=== PATIENT | female | born 1940 | race Caucasian/White ===

== ENCOUNTER 2017-05-04 16:25 | Emergency (ER) | payer OTHER ==
--- NOTE | 2017-05-04 17:28 | DIAGNOSTIC IMAGING REPORT ---
PROCEDURE: XR CHEST 1 VIEW INDICATION: DIZZY TECHNIQUE: Portable AP view 04:57 p.m. COMPARISON: None. FINDINGS: Lungs are clear. Mild cardiomegaly. Normal pulmonary vasculature. Hiatal hernia. IMPRESSION: 1. Mild cardiomegaly. Lungs clear.
--- NOTE | 2017-05-04 18:02 | ED NURSING NOTES ---
Clinical Report - Nurses [facility] [address] [place] [address] 05/04/2017 16:25 Patient: TAMI WINCHESTER TRIAGE Triage time 16:27 May 04 2017. Acuity: LEVEL 2. Chief Complaint: DIZZINESS and ([facility], accomp with dizziness, per ems SR, glucose 126). Alert. No acute distress. SEPSIS SCREEN: Sepsis Screen. Negative (no infection suspected/documented). ERWIN COMA SCORE: [place] Coma Scale: 15- eyes open spontaneously (4); best verbal response- oriented x 4 (5); best motor response- obeys commands (6). --16:35 Linnette Penny R.N. 16:26 05/04/17. BP: 162/72. HR: 60. RR: 17. O2 saturation: 97%. Temp: 97.9 F. Pain level now: 0/10. --16:35 Linnette Penny R.N. Weight: 80.7 kg stated. Height/Length: 67 inches Per Patient. BMI: 27.9. --16:29 Linnette Penny R.N. Medications Levoxyl Oral (Tablet 100 mcg), daily. --16:39 Linnette Penny R.N. Lisinopril Oral (Tablet 20 mg), 2x a day. --16:40 Linnette Penny R.N. B12 injection. --16:41 Linnette Penny R.N. HumaLOG Subcutaneous. --16:41 Linnette Penny R.N. HumuLIN N Subcutaneous. --16:41 Linnette Penny R.N. Aspirin Oral (Tablet 81 mg) 1 tablet, daily. --16:42 Linnette Penny R.N. Fish Oil Oral. --16:42 Linnette Penny R.N. Vit D3. --16:42 Linnette Penny R.N. Turmeric Oral. --16:42 Linnette Penny R.N. The following entry was struck by Linnette Penny R.N., 16:39 (05/04/17) Reason - other(pt didn't have list upon arrival). <<STRICKEN ENTRY-- Unknown. --16:30 Linnette Penny R.N. --END STRIKE>>. Allergies Lipitor. --16:30 Linnette Penny R.N. Latex. --16:30 Linnette Penny R.N. Carvitol . --16:43 Linnette Penny R.N. Metronidazole. --16:43 Linnette Penny R.N. (pt unsure of meds,). --16:35 Linnette Penny R.N. History Arrived by EMS. Historian: patient. This started just prior to arrival. She has had nausea. 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 Pre-hospital 12-lead EKG performed en route (). PAST MEDICAL HX: Immunizations: up-to-date. The patient has had a hysterectomy. SOCIAL HX: Never smoker. Occasional alcohol use; consumes liquor. No infectious disease exposure. ABUSE ASSESSMENT: No report of abuse. SELF HARM ASSESSMENT: A self harm assessment was performed. The patient answered "no" to the question "Do you have thoughts of harming or killing yourself?". NUTRITIONAL RISK ASSESSMENT: The nutritional risk assessment revealed no deficiencies. FUNCTIONAL ASSESSMENT: Functional assessment: no impairments noted. LEARNING NEEDS ASSESSMENT: The learning needs assessment revealed no barriers. FALL RISK ASSESSMENT: Fall risk assessment completed. Risk factors identified include dizziness and patient age greater than 65 years. Fall interventions initiated. Patient placed on stretcher. Side rails up x2. Brakes on Bed in low position. Patient identified as a fall risk by ID band. Call light in reach of patient. Instructed not to get up without assistance. SKIN INTEGRITY ASSESSMENT: Skin integrity risk assessment completed. No skin integrity risk identified. --16:35 Linnette Penny R.N. PROBLEMS: Stented coronary artery. Hypertension. Diabetes Mellitus. --16:32 Linnette Penny R.N. ADDITIONAL SURGERIES: Back Surgery. --16:32 Linnette Penny R.N. Appendectomy. Hysterectomy. --16:35 Linnette Penny R.N. Interventions To treatment room. --16:35 Linnette Penny R.N. PHYSICAL ASSESSMENT To room via stretcher. Patient gowned. GENERAL / NEURO / PSYCH: Oriented X 4. Appears in no acute distress. Alert. Speech within normal limits. RESPIRATORY: Respirations not labored. CVS: Cardiac rhythm: (SR). GI / : Abdomen soft and nontender. SKIN: Skin is warm and dry. --16:36 Linnette Penny R.N. NURSING PROGRESS NOTES EKG time: (8080). EKG was performed by a harshad and shown to the ED physician. --16:27 Linnette Penny R.N. 16:36 05/04/2017 Site #1 started prior to arrival by EMS via IV in the right antecubital space with an 18g angiocath. --16:36 Linnette Penny R.N. playground monitor, pulse oximeter and NIBP monitor placed on patient; nurse monitoring- Lead II, aVF and V5; monitor alarms on. Patient gowned. Patient identifiers checked. Call light placed in reach. Side rails up x 2. Bed placed in lowest position. Brakes of bed on. Patient ready for evaluation- chart flagged. Patient waiting for evaluation. --16:37 Linnette Penny R.N. <<STRICKEN ENTRY-- 17:24 05/04/17. BP: 146/68. HR: 60. O2 saturation: 94%. --17:29 Chetna Yuen, ER Tech1 --END STRIKE>> Correction. --17:30 Chetna Yuen, ER Tech1 <<STRICKEN ENTRY-- 17:25 05/04/17. BP: 146/68 taken while lying. HR: 60. O2 saturation: 94%. --17:29 Chetna Yuen ER Tech1 --END STRIKE>> Correction. --17:30 Chetna Yuen ER Tech1 ( orthostatics - lying bl. pressure-146/68, pulse-60 sitting bl. pressure- 156/61, pulse- 63 standing bl. pressure- 156/64, pulse- 70). --17:32 Chetna Yuen ER Tech1 17:54 05/04/2017 Zofran (Ondansetron HCl) IVP 4 mg given. via site #1. Allergies verified and confirmed 5 rights. IV patency established. IV site checked: no pain, redness, or swelling. IV flushed thoroughly pre- and post-medication administration. IVP given by RN. --17:59 Linnette Penny R.N. 17:54 05/04/2017 Started bag #1 500 mL IV Fluids IV NS (Saline); at 500 mL/hr via site #1. Allergies verified and confirmed 5 rights. IV patency established. IV site checked: no pain, redness, or swelling. IV flushed thoroughly pre- and post-medication administration. --17:59 Linnette Penny R.N. 18:00 05/04/2017 Aspirin PO 325 mg given. Allergies verified and confirmed 5 rights. --18:00 Linnette Penny R.N. 19:28 05/04/2017 Site #1 removed. Bandaid applied (pt signing out AMA). --19:38 Linnette Penny R.N. ( pt reports improvement in symptoms since arrival, "I still spin a little but it's better" pt able to get up and dress self, pt a/o x 4, pt denies cp, "it wasn't even pain earlier it was pressure" pt ready to leave.). --19:42 Linnette Penny R.N. 19:30 05/04/2017 IV Fluids IV NS Discontinued: completed. Total amount infused: 500 mL. IV patency established. IV site checked: no pain, redness, or swelling. IV flushed thoroughly. --19:55 Linnette Penny R.N. 19:30 05/04/2017 Zofran IVP Response: no adverse reaction symptoms are the same. --19:55 Linnette Penny R.N. DISPOSITION / DISCHARGE The patient left the Emergency Department against medical advice and without completion of treatment; patient was accompanied by a family member. The patient appears to be alert, oriented x4 and coherent. The patient stated is leaving the ED due to personal reasons. Notified the ED physician of patient departure. Prior to leaving the ED, she was advised to stay for completion of treatment and return if needed. She was informed of the risks of leaving and verbalized understanding of these risks. Patient signed form prior to leaving. She left the Emergency Department ambulatory and via private vehicle. ( MD spent a good amount of time with pt explaining importance of staying for further tx, plan was for pt to be an admit to hospital, when MD explained to pt if this is her heart risks posed , pain, disability, pt reported "I only have to live til next " when asked why pt reports "I meet with my securities attorney to do my final will" daughter in law at bedside states "It's up to her" pt despite risks chooses to go home.). --19:14 Linnette Penny R.N. Cardiac rhythm: (SR). --19:15 Linnette Penny R.N. No learning barriers present. Discharge instructions provided and reviewed with the patient. Reviewed medication(s) side effects information. Prescription(s) given to the patient. Activity restrictions reviewed (per MD note). Patient and family verbalized understanding. Written instructions provided in Estonian. The patient was discharged by the physician. She was discharged home and accompanied by family. She left the Emergency Department ambulatory and via private vehicle. Family member driving. ( PT signed out AMA). --19:54 Linnette Penny R.N. 19:41 05/04/17. BP: 162/67. HR: 69. RR: 17. O2 saturation: 97%. Pain level now: 0/10. 18:53 05/04/17. BP: 157/64. HR: 66. 18:08 05/04/17. BP: 158/58. HR: 61. RR: 17. Pain level now: 010. 17:29 05/04/17. BP: 156/64 taken while standing. HR: 70. 17:28 05/04/17. BP: 156/61 taken while sitting. HR: 63. 16:26 05/04/17. BP: 162/72. HR: 60. RR: 17. O2 saturation: 97%. Temp: 97.9 F. Pain level now: 0/10. --19:54 Linnette Penny R.N. Locked/Released at 05/04/2017 20:54 by Linnette Penny R.N.
--- NOTE | 2017-05-04 18:02 | ED CLINICAL REPORT ---
Clinical Report - Physicians/Mid Levels [facility] [address] [place] [address] 05/04/2017 16:25 Patient: TAMI WINCHESTER Time Seen: 16:44. Arrived- By private vehicle. Historian- patient. HISTORY OF PRESENT ILLNESS Chief Complaint: DIZZINESS. Severity described as severe at its maximum. When seen in the E.D., severity described as mild. Modifying factors- worsened by turning head. Described as a moderate, vague sense of movement, sense of falling and feeling off balance. This started today and is still present. It was abrupt in onset and has been constant. The patient has had nausea and vomiting. No hearing loss or ear pain. Similar symptoms previously: Twice. Diagnosis: (vertigo). REVIEW OF SYSTEMS No chills, fever, sweats, calf pain or cough. No difficulty breathing, pedal edema or palpitations. She has had mild, pressure-like central chest pain ("tightness" when she was walking), currently gone, associated with nausea and diaphoresis. No radiation. No associated shortness of breath. All systems otherwise negative, except as recorded above. PAST HISTORY ( PCP - [facility] [place]). Problems: Stented coronary artery. Hypertension. Diabetes Mellitus. Additional Surgeries: Appendectomy. Back Surgery. Hysterectomy. Medications: Turmeric Oral. Vit D3. Fish Oil Oral. Aspirin Oral (Tablet 81 mg) 1 tablet, daily. HumuLIN N Subcutaneous. HumaLOG Subcutaneous. B12 injection. Lisinopril Oral (Tablet 20 mg), 2x a day. Levoxyl Oral (Tablet 100 mcg), daily. Allergies: Carvitol . Latex. Lipitor. Metronidazole. SOCIAL HISTORY Never smoker. No alcohol use. FAMILY HISTORY Diabetes in first-degree relative (mother and father). ADDITIONAL NOTES The nursing notes have been reviewed. PHYSICAL EXAM Vital Signs: 05/04/2017 16:26 BP: 162/72. HR: 60. RR: 17. O2 saturation: 97%. Temp: 97.9 F. Pain level now: 0/10. Have been reviewed. Appearance: Alert. Eyes: Horizontal nystagmus. ENT: Moist mucous membranes. Pharynx normal. Neck: Normal inspection. Neck supple. No carotid bruit. CVS: Normal heart rate and rhythm. Heart sounds normal. Respiratory: No respiratory distress. Breath sounds normal. Abdomen: Soft and nontender. No organomegaly. Back: Normal inspection. Skin: Skin warm and dry. Normal skin color. Normal skin turgor. Extremities: Extremities exhibit normal ROM. No lower extremity edema. Neuro: Alert. Speech normal. No cerebellar findings. No motor deficit. No sensory deficit. LABS, X-RAYS, AND EKG EKG: Rate: 61. Incomplete RBBB. Left axis deviation. Non-specific ST segment / T wave abnormalities. The study has been independently viewed by me. Laboratory Tests: CBC w Diff: (ANTHONY: 05/04/2017 16:35) ( CagRcvd 05/04/2017 16:57) Final results Test Result Flag Units (Reference) WHITE BLOOD COUNT 5.5 K/uL (4.5-11.5) RED BLOOD COUNT 3.68 L M/uL (4.00-5.20) HEMOGLOBIN 10.3 L gm/dL (12.0-16.0) HEMATOCRIT 31.2 L % (36.0-46.0) MEAN CELL VOLUME 85 fL (80-100) MEAN CORPUSCULAR HGB 28 pg (26-34) MEAN CORPUSCULAR HGB CONC 33 g/dL (31-37) RED CELL DISTRIBUTION WIDTH 14.8 % (11.6-14.8) PLATELET COUNT 261 K/uL (150-400) NEUTROPHIL % 45.0 L % (50-75) LYMPH % 40.0 % (25-40) MONO % 11.1 % (3-14) EOSINOPHIL % 3.5 % (0-4) BASOPHIL % 0.4 % (0-2) CPK: (ANTHONY: 05/04/2017 16:35) ( MsgRcvd 05/04/2017 17:31) Final results Test Result Flag Units (Reference) CPK 76 U/L (24-260) TROPONIN I <0.05 L ng/mL (0.00-1.5) TROPONIN REFERENCE RANGE:<0.1 NEGATIVE0.1-1.5 INDETERMINANT>1.5 POSITIVE CMP: (ANTHONY: 05/04/2017 16:35) ( MsgRcvd 05/04/2017 17:20) Final results Test Result Flag Units (Reference) GLUCOSE 76 mg/dL (70-110) BUN 28 H mg/dL (7-18) CREATININE 1.1 mg/dL (0.6-1.3) Estimated GFR 51.06 mL/min Estimated GFR- >60 mL/min Note: Persistent reduction over 3 months in eGFR<60 mL/min/1.73 m2 defines CKD. Patients with eGFR values>=60 mL/min/1.73 m2 may also have CKD if evidence ofpersistent proteinuria. Additional information may be foundat www.kidney.org. SODIUM 137 mmol/L (136-145) POTASSIUM 4.0 mmol/L (3.5-5.1) CHLORIDE 101 mmol/L (98-107) CARBON DIOXIDE 26 mmol/L (21-32) CALCIUM 9.0 mg/dL (8.5-10.1) TOTAL PROTEIN 7.4 g/dL (6.4-8.2) ALBUMIN 3.7 g/dL (3.3-5.0) BILIRUBIN, TOTAL 0.2 mg/dL (0.0-1.0) ALKALINE PHOSPHATASE 30 L U/L (46-116) AST (SGOT) 16 U/L (15-37) ALT (SGPT) 16 U/L (12-78) LIPASE 100 U/L (73-393) AMYLASE 32 U/L (25-115) . PROGRESS AND PROCEDURES Course of Care: I had an extended discussion with the patient regarding my concerns about the chest discomfort she had experienced earlier. I consulted Dr. Harvey and when he came to evaluate her the patient said that she did not want to be brought in for observation. I subsequently went back and explained at length my concerns regarding the risk of injury to her heart and the importance behind cardiac monitoring and obtaining serial enzymes. In spite of this she insisted that her dizziness feels better and she does not want to be admitted for observation. She acknowledges the risks associated with leaving and yet continues to insist that she leave. Patient is stable. Discussed case with hospitalist, (Wes Christopher he saw the patient in the emergency room. However, she refused admission as noted.). Reviewed test results and need for additional work-up. Agreed upon treatment plan, need for patient follow-up and decision to place in observation. Patient/family counseled. Old medical records ordered. Old records unavailable. CLINICAL IMPRESSION Acute vertigo. Chest pain characterized as "tightness". INSTRUCTIONS No driving or operating machinery while taking medication. Sedative medication was given during your visit. No strenuous activity. Drink plenty of fluids. Warnings: Further evaluation is necessary. GENERAL WARNINGS: Return or contact your physician immediately if your condition worsens or changes unexpectedly, if not improving as expected, or if other problems arise. Your Current Medications: CONTINUE TAKING THE FOLLOWING MEDICATIONS: Aspirin Oral : Tablet 81 mg, 1 tablet daily. B12 injection*. Fish Oil Oral. HumaLOG Subcutaneous. HumuLIN N Subcutaneous. Levoxyl Oral : Tablet 100 mcg, daily. Lisinopril Oral : Tablet 20 mg, 2x a day. Turmeric Oral. Vit D3*. Prescription Medications: Antivert 25mg: Take 1 tablet orally every 8 hours as needed for dizziness. Dispense thirty (30). No refills. Substitution is permissible. Follow-up: Follow up with your doctor tomorrow. Call for the next available appointment. Understanding of the discharge instructions verbalized by patient. (Electronically signed by Chidi Hawley MD 05/05/2017 9:47)
--- NOTE | 2017-05-04 18:02 | ED NURSING NOTES ---
Clinical Report - Nurses [facility] [address] [place] [address] 05/04/2017 16:25 Patient: TAMI WINCHESTER TRIAGE Triage time 16:27 May 04 2017. Acuity: LEVEL 2. Chief Complaint: DIZZINESS and ([facility] with [facility]iness, per ems SR, glucose 126). Alert. No acute distress. SEPSIS SCREEN: Sepsis Screen. Negative (no infection suspected/documented). ERWIN COMA SCORE: [place] Coma Scale: 15- eyes open spontaneously (4); best verbal response- oriented x 4 (5); best motor response- obeys commands (6). --16:35 Linnette Penny R.N. 16:26 05/04/17. BP: 162/72. HR: 60. RR: 17. O2 saturation: 97%. Temp: 97.9 F. Pain level now: 0/10. --16:35 Linnette Penny R.N. Weight: 80.7 kg stated. Height/Length: 67 inches Per Patient. BMI: 27.9. --16:29 Linnette Penny R.N. Medications Levoxyl Oral (Tablet 100 mcg), daily. --16:39 Linnette Penny R.N. Lisinopril Oral (Tablet 20 mg), 2x a day. --16:40 Linnette Penny R.N. B12 injection. --16:41 Linnette Penny R.N. HumaLOG Subcutaneous. --16:41 Linnette Penny R.N. HumuLIN N Subcutaneous. --16:41 Linnette Penny R.N. Aspirin Oral (Tablet 81 mg) 1 tablet, daily. --16:42 Linnette Penny R.N. Fish Oil Oral. --16:42 Linnette Penny R.N. Vit D3. --16:42 Linnette Penny R.N. Turmeric Oral. --16:42 Linnette Penny R.N. The following entry was struck by Linnette Penny R.N., 16:39 (05/04/17) Reason - other(pt didn't have list upon arrival). <<STRICKEN ENTRY-- Unknown. --16:30 Linnette Penny R.N. --END STRIKE>>. Allergies Lipitor. --16:30 Linnette Penny R.N. Latex. --16:30 Linnette Penny R.N. Carvitol . --16:43 Linnette Penny R.N. Metronidazole. --16:43 Linnette Penny R.N. (pt unsure of meds,). --16:35 Linnette Penny R.N. History Arrived by EMS. Historian: patient. This started just prior to arrival. She has had nausea. 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 Pre-hospital 12-lead EKG performed en route (). PAST MEDICAL HX: Immunizations: up-to-date. The patient has had a hysterectomy. SOCIAL HX: Never smoker. Occasional alcohol use; consumes liquor. No infectious disease exposure. ABUSE ASSESSMENT: No report of abuse. SELF HARM ASSESSMENT: A self harm assessment was performed. The patient answered "no" to the question "Do you have thoughts of harming or killing yourself?". NUTRITIONAL RISK ASSESSMENT: The nutritional risk assessment revealed no deficiencies. FUNCTIONAL ASSESSMENT: Functional assessment: no impairments noted. LEARNING NEEDS ASSESSMENT: The learning needs assessment revealed no barriers. FALL RISK ASSESSMENT: Fall risk assessment completed. Risk factors identified include dizziness and patient age greater than 65 years. Fall interventions initiated. Patient placed on stretcher. Side rails up x2. Brakes on Bed in low position. Patient identified as a fall risk by ID band. Call light in reach of patient. Instructed not to get up without assistance. SKIN INTEGRITY ASSESSMENT: Skin integrity risk assessment completed. No skin integrity risk identified. --16:35 Linnette Penny R.N. PROBLEMS: Stented coronary artery. Hypertension. Diabetes Mellitus. --16:32 Linnette Penny R.N. ADDITIONAL SURGERIES: Back Surgery. --16:32 Linnette Penny R.N. Appendectomy. Hysterectomy. --16:35 Linnette Penny R.N. Interventions To treatment room. --16:35 Linnette Penny R.N. PHYSICAL ASSESSMENT To room via stretcher. Patient gowned. GENERAL / NEURO / PSYCH: Oriented X 4. Appears in no acute distress. Alert. Speech within normal limits. RESPIRATORY: Respirations not labored. CVS: Cardiac rhythm: (SR). GI / : Abdomen soft and nontender. SKIN: Skin is warm and dry. --16:36 Linnette Penny R.N. NURSING PROGRESS NOTES EKG time: (5269). EKG was performed by a harshad and shown to the ED physician. --16:27 Linnette Penny R.N. 16:36 05/04/2017 Site #1 started prior to arrival by EMS via IV in the right antecubital space with an 18g angiocath. --16:36 Linnette Penny R.N. mycology teacher, pulse oximeter and NIBP monitor placed on patient; long wall mining machine helper- Lead II, aVF and V5; monitor alarms on. Patient gowned. Patient identifiers checked. Call light placed in reach. Side rails up x 2. Bed placed in lowest position. Brakes of bed on. Patient ready for evaluation- chart flagged. Patient waiting for evaluation. --16:37 Linnette Penny R.N. <<STRICKEN ENTRY-- 17:24 05/04/17. BP: 146/68. HR: 60. O2 saturation: 94%. --17:29 Chetna Yuen, ER Tech1 --END STRIKE>> Correction. --17:30 Chetna Yuen, ER Tech1 <<STRICKEN ENTRY-- 17:25 05/04/17. BP: 146/68 taken while lying. HR: 60. O2 saturation: 94%. --17:29 Chetna Yuen ER Tech1 --END STRIKE>> Correction. --17:30 Chetna Yuen ER Tech1 ( orthostatics - lying bl. pressure-146/68, pulse-60 sitting bl. pressure- 156/61, pulse- 63 standing bl. pressure- 156/64, pulse- 70). --17:32 Chetna Yuen ER Tech1 17:54 05/04/2017 Zofran (Ondansetron HCl) IVP 4 mg given. via site #1. Allergies verified and confirmed 5 rights. IV patency established. IV site checked: no pain, redness, or swelling. IV flushed thoroughly pre- and post-medication administration. IVP given by RN. --17:59 Linnette Penny R.N. 17:54 05/04/2017 Started bag #1 500 mL IV Fluids IV NS (Saline); at 500 mL/hr via site #1. Allergies verified and confirmed 5 rights. IV patency established. IV site checked: no pain, redness, or swelling. IV flushed thoroughly pre- and post-medication administration. --17:59 Linnette Penny R.N. 18:00 05/04/2017 Aspirin PO 325 mg given. Allergies verified and confirmed 5 rights. --18:00 Linnette Penny R.N. 19:28 05/04/2017 Site #1 removed. Bandaid applied (pt signing out AMA). --19:38 Linnette Penny R.N. ( pt reports improvement in symptoms since arrival, "I still spin a little but it's better" pt able to get up and dress self, pt a/o x 4, pt denies cp, "it wasn't even pain earlier it was pressure" pt ready to leave.). --19:42 Linnette Penny R.N. 19:30 05/04/2017 IV Fluids IV NS Discontinued: completed. Total amount infused: 500 mL. IV patency established. IV site checked: no pain, redness, or swelling. IV flushed thoroughly. --19:55 Linnette Penny R.N. 19:30 05/04/2017 Zofran IVP Response: no adverse reaction symptoms are the same. --19:55 Linnette Penny R.N. DISPOSITION / DISCHARGE The patient left the Emergency Department against medical advice and without completion of treatment; patient was accompanied by a family member. The patient appears to be alert, oriented x4 and coherent. The patient stated is leaving the ED due to personal reasons. Notified the ED physician of patient departure. Prior to leaving the ED, she was advised to stay for completion of treatment and return if needed. She was informed of the risks of leaving and verbalized understanding of these risks. Patient signed form prior to leaving. She left the Emergency Department ambulatory and via private vehicle. ( MD spent a good amount of time with pt explaining importance of staying for further tx, plan was for pt to be an admit to hospital, when MD explained to pt if this is her heart risks posed , pain, disability, pt reported "I only have to live til next " when asked why pt reports "I meet with my trademark attorney to do my final will" daughter in law at bedside states "It's up to her" pt despite risks chooses to go home.). --19:14 Linnette Penny R.N. Cardiac rhythm: (SR). --19:15 Linnette Penny R.N. No learning barriers present. Discharge instructions provided and reviewed with the patient. Reviewed medication(s) side effects information. Prescription(s) given to the patient. Activity restrictions reviewed (per MD note). Patient and family verbalized understanding. Written instructions provided in Moroccan. The patient was discharged by the physician. She was discharged home and accompanied by family. She left the Emergency Department ambulatory and via private vehicle. Family member driving. ( PT signed out AMA). --19:54 Linnette Penny R.N. 19:41 05/04/17. BP: 162/67. HR: 69. RR: 17. O2 saturation: 97%. Pain level now: 0/10. 18:53 05/04/17. BP: 157/64. HR: 66. 18:08 05/04/17. BP: 158/58. HR: 61. RR: 17. Pain level now: 010. 17:29 05/04/17. BP: 156/64 taken while standing. HR: 70. 17:28 05/04/17. BP: 156/61 taken while sitting. HR: 63. 16:26 05/04/17. BP: 162/72. HR: 60. RR: 17. O2 saturation: 97%. Temp: 97.9 F. Pain level now: 0/10. --19:54 Linnette Penny R.N. Locked/Released at 05/04/2017 20:54 by Linnette Penny R.N.
--- NOTE | 2017-05-04 18:02 | ED ORDER SUMMARY ---
..... Patient: TAMI WINCHESTER OrderSheet [facility] VisitID: [id number] [place] [address] 76y, F Registration Date/Time: 05/04/2017 ORDER SHEET Weight: 80.7 kg (stated) Allergies: Lipitor, Latex, Carvitol , Metronidazole GENERAL ORDERS: CBC w Diff Urgent (16:45 05/04/2017 Ayaz CEDENO) (Ack 16:50 PWeiler ER Tech1) (16:57 KPage-Kuchan R.N.) CMP Urgent (16:45 05/04/2017 Ayaz CEDENO) (Ack 16:50 PWeiler ER Tech1) (16:57 KPage-Kuchan R.N.) UA-Culture if indicated Urgent (16:45 05/04/2017 Ayaz CEDENO) (Ack 16:50 PWeiler ER Tech1) Amylase Urgent (16:45 05/04/2017 Ayaz CEDENO) (Ack 16:50 PWeiler ER Tech1) (16:57 KPage-Kuchan R.N.) Lipase Urgent (16:45 05/04/2017 Ayaz CEDENO) (Ack 16:50 PWeiler ER Tech1) (16:58 KPage-Kuchan R.N.) Vitals - Orthostatic (16:45 05/04/2017 Ayaz CEDENO) (17:32 LNations ER Tech1) Chest 1V Urgent (16:45 05/04/2017 Ayaz CEDENO) (Ack 16:50 PWeiler ER Tech1) (16:58 KPage-Kuchan R.N.) Secretary To The Vice President (Continuous) (16:45 05/04/2017 Ayaz CEDENO) (16:57 KPage-Kuchan R.N.) CPK Urgent (16:45 05/04/2017 Ayaz CEDENO) (Ack 16:50 PWeiler ER Tech1) (16:58 KPage-Kuchan R.N.) Troponin-I Urgent (16:45 05/04/2017 Ayaz CEDENO) (Ack 16:50 PWeijaret ER Tech1) (16:58 KPage-Kuchan R.N.) Pulse oximeter (16:45 05/04/2017 Ayaz CEDENO) (16:58 Sigrid R.N.) EKG - ER Stat (16:45 05/04/2017 Ayaz CEDENO) (16:49 PWeiler ER Tech1) MEDICATION ORDERS: Aspirin PO 325 mg (NOW) (17:56 05/04/2017 Ayaz CEDENO) (18:00 Sigrid R.N.) IV FLUIDS: IV Saline Lock (16:45 05/04/2017 Ayaz CEDENO) (16:57 KPaManuela R.N.) Zofran IV 4 mg (NOW) (17:45 05/04/2017 Sigrid R.N. verbal order read back to Ayaz CEDENO) (17:59 KPaManuela R.N.) IV NS : initial bolus 500 mL (1000 mL/hr), then 125 mL/hr for 4h (NOW); Urgent (17:47 05/04/2017 Ayaz CEDENO) (17:59 KPaManuela R.N.) ORDER SHEET NOTES: [Electronically signed by Linnette Penny R.N. (20:54 05/04/2017)] [Electronically signed by Chidi Hawley MD (09:47 05/05/2017)] [Electronically locked/signed by Linnette Penny R.N. (20:54 05/04/2017)]
--- NOTE | 2017-05-04 18:02 | ED ORDER SUMMARY ---
..... Patient: TAMI WINCHESTER OrderSheet [facility] VisitID: [id number] [place] [address] 76y, F Registration Date/Time: 05/04/2017 ORDER SHEET Weight: 80.7 kg (stated) Allergies: Lipitor, Latex, Carvitol , Metronidazole GENERAL ORDERS: CBC w Diff Urgent (16:45 05/04/2017 Ayaz CEDENO) (Ack 16:50 PWeiler ER Tech1) (16:57 KPage-Kuchan R.N.) CMP Urgent (16:45 05/04/2017 Ayaz CEDENO) (Ack 16:50 PWeiler ER Tech1) (16:57 KPage-Kuchan R.N.) UA-Culture if indicated Urgent (16:45 05/04/2017 Ayaz CEDENO) (Ack 16:50 PWeiler ER Tech1) Amylase Urgent (16:45 05/04/2017 Ayaz CEDENO) (Ack 16:50 PWeiler ER Tech1) (16:57 KPage-Kuchan R.N.) Lipase Urgent (16:45 05/04/2017 Ayaz CEDENO) (Ack 16:50 PWeiler ER Tech1) (16:58 KPage-Kuchan R.N.) Vitals - Orthostatic (16:45 05/04/2017 Ayaz CEDENO) (17:32 LNations ER Tech1) Chest 1V Urgent (16:45 05/04/2017 Ayaz CEDENO) (Ack 16:50 PWeiler ER Tech1) (16:58 KPage-Kuchan R.N.) Raw Cheese Worker (Continuous) (16:45 05/04/2017 Ayaz CEDENO) (16:57 KPage-Kuchan R.N.) CPK Urgent (16:45 05/04/2017 Ayaz CEDENO) (Ack 16:50 PWeiler ER Tech1) (16:58 KPage-Kuchan R.N.) Troponin-I Urgent (16:45 05/04/2017 Ayaz CEDENO) (Ack 16:50 PWeijaret ER Tech1) (16:58 KPage-Kuchan R.N.) Pulse oximeter (16:45 05/04/2017 Ayaz CEDENO) (16:58 Sigrid R.N.) EKG - ER Stat (16:45 05/04/2017 Ayaz CEDENO) (16:49 PWeiler ER Tech1) MEDICATION ORDERS: Aspirin PO 325 mg (NOW) (17:56 05/04/2017 Ayaz CEDENO) (18:00 Sigrid R.N.) IV FLUIDS: IV Saline Lock (16:45 05/04/2017 Ayaz CEDENO) (16:57 KPaManuela R.N.) Zofran IV 4 mg (NOW) (17:45 05/04/2017 Sigrid R.N. verbal order read back to Ayaz CEDENO) (17:59 KPaManuela R.N.) IV NS : initial bolus 500 mL (1000 mL/hr), then 125 mL/hr for 4h (NOW); Urgent (17:47 05/04/2017 Ayaz CEDENO) (17:59 KPaManuela R.N.) ORDER SHEET NOTES: [Electronically signed by Linnette Penny R.N. (20:54 05/04/2017)] [Electronically signed by Chidi Hawley MD (09:47 05/05/2017)] [Electronically locked/signed by Linnette Penny R.N. (20:54 05/04/2017)]
[2017-05-04] MEDS ORDERED: LEVOTHYROXINE100 MCG PO (18:28)
[2017-05-04] MEDS ORDERED: LISINOPRIL10 MG PO (18:29)
[2017-05-04] MEDS ORDERED: B-125000 MC1 (18:29)
[2017-05-04] MEDS ORDERED: HUMALOG100 MG/ML (18:30)
[2017-05-04] MEDS ORDERED: ASPIRIN ADULT L81 M1 PO (18:31)
[2017-05-04] MEDS ORDERED: FISH OIL306 MG (18:31)
[2017-05-04] MEDS ORDERED: HUMULIN 70/30 (18:31)
[2017-05-04] MEDS ORDERED: VITAMIN D-31000 UNIT PO (18:32)
[2017-05-04] MEDS ORDERED: TURMERIC CURCUMIN (18:32)
--- NOTE | 2017-05-05 09:47 | ED MAR SUMMARY ---
..... Medication Administration Record [facility] [address] [place] [address] Patient: TAMI WINCHESTER Visit ID: [id number] 76y, F Weight: 80.7 kg Height/Length: 67 in BMI: 27.9 ALLERGIES: Latex, Lipitor, Metronidazole, Carvitol Given 17:54 05/04/2017 Linnette Penny R.N. Medication Administered: ZOFRAN [IVP] (ONDANSETRON HCL), Dose: 4 mg IVP, Site: #1 right AC. Medication Ordered: Zofran IV 4 mg (NOW). Start 17:54 05/04/2017 Linnette Penny R.N., Stop 19:30 05/04/2017 Linnette Penny R.N. Medication Administered: IV NS (SALINE), Dose: IV Fluids, Rate: 500 mL/hr, Dispensed: 500 mL bag, Site: #1 right AC. Medication Ordered: IV NS : initial bolus 500 mL (1000 mL/hr), then 125 mL/hr for 4h (NOW); Urgent. Given 18:00 05/04/2017 Linnette Penny R.N. Medication Administered: ASPIRIN [PO], Dose: 325 mg PO. Medication Ordered: Aspirin PO 325 mg (NOW).
--- NOTE | 2017-05-05 09:47 | ED MED RECONCILIATION SUMMARY ---
Patient: TAMI WINCHESTER Medication Reconciliation Report [facility] VisitID: [id number] [place] [address] 76y, F Registration Date/Time: 05/04/2017 Weight: 80.7 kg Height/Length: 67 in. BMI: 27.9 ALLERGIES: Carvitol , Latex, Lipitor, Metronidazole The patient's Home Medications are listed below: CONTINUE TAKING THE FOLLOWING MEDICATIONS: Aspirin Oral (81 mg) 1 tablet, daily B12 injection Fish Oil Oral HumaLOG Subcutaneous HumuLIN N Subcutaneous Levoxyl Oral (100 mcg), daily Lisinopril Oral (20 mg), 2x a day Turmeric Oral Vit D3 The source(s) of the original Home Medication information: pt unsure of meds, The following Medications were given to the patient in the Emergency Department: Zofran [IVP] IVP 4 mg, administered: 05/04/2017 5:54:00 PM IV NS IV Fluids bolus 0, then 500 mL/hr, administered: 05/04/2017 5:54:00 PM Aspirin [PO] PO 325 mg, administered: 05/04/2017 6:00:00 PM The following Medications were prescribed to the patient: Antivert 25mg: Take 1 tablet orally every 8 hours as needed for dizziness. Dispense thirty (30). No refills. Substitution is permissible. -- Chidi Hawely MD
--- NOTE | 2017-05-05 09:47 | ED MAR SUMMARY ---
..... Medication Administration Record [facility] [address] [place] [address] Patient: TAMI WINCHESTER Visit ID: [id number] 76y, F Weight: 80.7 kg Height/Length: 67 in BMI: 27.9 ALLERGIES: Latex, Lipitor, Metronidazole, Carvitol Given 17:54 05/04/2017 Linnette Penny R.N. Medication Administered: ZOFRAN [IVP] (ONDANSETRON HCL), Dose: 4 mg IVP, Site: #1 right AC. Medication Ordered: Zofran IV 4 mg (NOW). Start 17:54 05/04/2017 Linnette Penny R.N., Stop 19:30 05/04/2017 Linnette Penny R.N. Medication Administered: IV NS (SALINE), Dose: IV Fluids, Rate: 500 mL/hr, Dispensed: 500 mL bag, Site: #1 right AC. Medication Ordered: IV NS : initial bolus 500 mL (1000 mL/hr), then 125 mL/hr for 4h (NOW); Urgent. Given 18:00 05/04/2017 Linnette Penny R.N. Medication Administered: ASPIRIN [PO], Dose: 325 mg PO. Medication Ordered: Aspirin PO 325 mg (NOW).
--- NOTE | 2017-05-05 09:47 | ED DISCHARGE INSTRUCTIONS ---
Patient: TAMI WINCHESTER General Instructions [facility] VisitID: [id number] [place] [address] 76y, F Registration Date/Time: 05/04/2017 Acute vertigo. Chest pain characterized as "tightness". INSTRUCTIONS No driving or operating machinery while taking medication. Sedative medication was given during your visit. No strenuous activity. Drink plenty of fluids. Warnings: Further evaluation is necessary. GENERAL WARNINGS: Return or contact your physician immediately if your condition worsens or changes unexpectedly, if not improving as expected, or if other problems arise. Your Current Medications: CONTINUE TAKING THE FOLLOWING MEDICATIONS: Aspirin Oral : Tablet 81 mg, 1 tablet daily. B12 injection*. Fish Oil Oral. HumaLOG Subcutaneous. HumuLIN N Subcutaneous. Levoxyl Oral : Tablet 100 mcg, daily. Lisinopril Oral : Tablet 20 mg, 2x a day. Turmeric Oral. Vit D3*. Prescription Medications: Antivert 25mg: Take 1 tablet orally every 8 hours as needed for dizziness. Dispense thirty (30). No refills. Substitution is permissible. Follow-up: Follow up with your doctor tomorrow. Call for the next available appointment. Understanding of the discharge instructions verbalized by patient. ADDITIONAL INFORMATION Vertigo [Unknown Cause] The "inner ear" is located behind the middle ear. It is part of the balance center of your body. Disease of the inner ear causes vertigo -- a false feeling of motion. It feels as if you or the room is spinning. A vertigo attack may cause sudden nausea, vomiting and heavy sweating. Severe vertigo causes a loss of balance and can cause you to fall. During vertigo, small head movements and changes in body position will often make the symptoms worse. The causes of vertigo include: Inflammation of the inner ear Disease of the nerves to the inner ear Movement of calcium particles in the inner ear Poor blood flow to the balance centers of the brain An episode of vertigo may last seconds, minutes or hours. Once you are over the first episode, it may never return. However, sometimes symptoms may recur off and on over several weeks or longer, depending on the cause. There may be ringing in the ears or hearing loss, which may be temporary or permanent. Home Care: If symptoms are severe, rest quietly in bed. Change positions very slowly. There is usually one position that will feel best, such as lying on one side or lying on your back with your head slightly raised on pillows. Do not drive or work with dangerous machinery for one week after symptoms go away, in case the symptoms suddenly return. Take medicine as prescribed to relieve your symptoms. Unless another medicine was prescribed for nausea, vomiting and vertigo, you may use [id number] motion sickness pills, such as meclizine (Bonine, Bonamine, Antivert) or dimenhydrinate (Dramamine). Follow Up with your doctor or as directed by our staff. Tell the doctor if your ears keep ringing, or if your hearing does not return to normal. Get Prompt Medical Attention if any of the following occur: Vertigo gets worse and is not controlled by medicine prescribed Repeated vomiting not relieved by medicine prescribed Increased weakness or fainting Severe headache or unusually drowsy or confused Weakness of an arm or leg or one side of the face Difficulty with speech or vision Chest Pain, Uncertain Cause Chest pain can happen for a number of reasons. Sometimes the cause can not be determined. If yourcondition does not seem serious, and your pain does not appear to be coming from your heart, your doctor may recommend watching it closely. Sometimes the signs of a serious problem take more time to appear. Therefore, watch for the warning signs listed below. Home care After your visit, follow these recommendations: Rest today and avoid strenuous activity. Take any prescribed medicine as directed. Follow-up care Follow up with your doctor or this facility as instructed or if you do not start to feel better within 24 hours. Call 911 Get immediate medical attention if any of the following occur: A change in the type of pain: if it feels different, becomes more severe, lasts longer, or begins to spread into your shoulder, arm, neck, jaw or back Shortness of breath or increased pain with breathing Weakness, dizziness, or fainting Rapid heart beat Get prompt medical attention Call your doctor right away if any of the following occur: Cough with dark colored sputum (phlegm) or blood Fever of 100.4F(38C) or higher, or as directed by your health care provider Swelling, pain or redness in one leg Meclizine Hydrochloride Oral tablet What is this medicine? MECLIZINE (ROWDY isabel) is an antihistamine. It is used to prevent nausea, vomiting, or dizziness caused by motion sickness. It is also used to prevent and treat vertigo (extreme dizziness or a feeling that you or your surroundings are tilting or spinning around). How should I use this medicine? Take this medicine by mouth with a glass of water. Follow the directions on the prescription label. If you are using this medicine to prevent motion sickness, take the dose at least 1 hour before travel. If it upsets your stomach, take it with food or milk. Take your doses at regular intervals. Do not take your medicine more often than directed. Talk to your ehr trainer regarding the use of this medicine in children. Special care may be needed. What side effects may I notice from receiving this medicine? Side effects that you should report to your doctor or health urgent care physician assistant as soon as possible: fainting spells fast or irregular heartbeat Side effects that usually do not require medical attention (report to your doctor or health urgent care physician assistant if they continue or are bothersome): constipation difficulty passing urine difficulty sleeping headache stomach upset What may interact with this medicine? barbiturate medicines for inducing sleep or treating seizures digoxin medicines for anxiety or sleeping problems, like alprazolam, diazepam or temazepam medicines for hay fever and other allergies medicines for mental depression medicines for movement abnormalities as in Parkinson's disease, or for stomach problems medicines for pain medicines that relax muscles What if I miss a dose? If you miss a dose, take it as soon as you can. If it is almost time for your next dose, take only that dose. Do not take double or extra doses. Where should I keep my medicine? Keep out of the reach of children. Store at room temperature between 15 and 30 degrees C (59 and 86 degrees F). Keep container tightly closed. Throw away any unused medicine after the expiration date. What should I tell my health care provider before I take this medicine? They need to know if you have any of these conditions: asthma glaucoma prostate trouble stomach problems urinary problems an unusual or allergic reaction to meclizine, other medicines, foods, dyes, or preservatives or trying to get breast-feeding What should I watch for while using this medicine? If you are taking this medicine on a regular schedule, visit your doctor or health urgent care physician assistant for regular checks on your progress. You may get dizzy, drowsy or have blurred vision. Do not drive, use machinery, or do anything that needs mental alertness until you know how this medicine affects you. Do not stand or sit up quickly, especially if you are an older patient. This reduces the risk of dizzy or fainting spells. Alcohol can increase possible dizziness. Avoid alcoholic drinks. Your mouth may get dry. Chewing sugarless gum or sucking hard candy, and drinking plenty of water may help. Contact your doctor if the problem does not go away or is severe. This medicine may cause dry eyes and blurred vision. If you wear contact lenses you may feel some discomfort. Lubricating drops may help. See your eye doctor if the problem does not go away or is severe. You have been given the following additional information: Vertigo, Unspecified Chest Pain, Uncertain Cause Meclizine Hydrochloride Oral tablet No driving or operating machinery while taking medication. Sedative medication was given during your visit. No strenuous activity. (Electronically signed by Chidi Hawley MD 05/05/2017 9:47)
--- NOTE | 2017-05-05 09:47 | ED MED RECONCILIATION SUMMARY ---
Patient: TAMI WINCHESTER Medication Reconciliation Report [facility] VisitID: [id number] [place] [address] 76y, F Registration Date/Time: 05/04/2017 Weight: 80.7 kg Height/Length: 67 in. BMI: 27.9 ALLERGIES: Carvitol , Latex, Lipitor, Metronidazole The patient's Home Medications are listed below: CONTINUE TAKING THE FOLLOWING MEDICATIONS: Aspirin Oral (81 mg) 1 tablet, daily B12 injection Fish Oil Oral HumaLOG Subcutaneous HumuLIN N Subcutaneous Levoxyl Oral (100 mcg), daily Lisinopril Oral (20 mg), 2x a day Turmeric Oral Vit D3 The source(s) of the original Home Medication information: pt unsure of meds, The following Medications were given to the patient in the Emergency Department: Zofran [IVP] IVP 4 mg, administered: 05/04/2017 5:54:00 PM IV NS IV Fluids bolus 0, then 500 mL/hr, administered: 05/04/2017 5:54:00 PM Aspirin [PO] PO 325 mg, administered: 05/04/2017 6:00:00 PM The following Medications were prescribed to the patient: Antivert 25mg: Take 1 tablet orally every 8 hours as needed for dizziness. Dispense thirty (30). No refills. Substitution is permissible. -- Chidi Hawley MD
== END 2017-05-05 06:45 | disposition left against medical advice (07) ==
LOC: ED SRH 16:25 → TRANS SRH 18:17 → ED SRH 05-05 06:45 → TRANS SRH 05-05 06:45
DX: R07.89 Other chest pain (principal); R42 Dizziness and giddiness; I10 Essential (primary) hypertension; E11.9 Type 2 diabetes mellitus without complications; Z79.82 Long term (current) use of aspirin; Z79.4 Long term (current) use of insulin; Z79.899 Other long term (current) drug therapy; Z88.1 Allergy status to other antibiotic agents; Z88.8 Allergy status to other drugs, medicaments and biological substances; Z91.040 Latex allergy status
CPT/HCPCS: 90100; 90616; 92235; 92530; 92610; 95059